=== PATIENT | female | born 1990 | race African-American/Black ===

== ENCOUNTER 2018-02-20 15:59 | Emergency (ER) | payer BC ==
[~2018-02-20] VITALS: Ht 177.8 cm; Wt 70.3 kg
[2018-02-20 16:00] VITALS: BP 111/78
[2018-02-20] MEDS ORDERED: PSEUDOEPHEDRINE HCL 30 MG TABLET ONE (16:58)
[2018-02-20] MEDS ORDERED: IBUPROFEN 600 MG TABLET PO ONE ×2 (16:58→17:00)
[2018-02-20] MEDS ORDERED: PSEUDOEPHEDRINE HCL 30 MG TABLET PO ONE (17:00)
== END 2018-02-20 17:14 | disposition home or self-care (01) ==
LOC: ER 16:00
DX: G44.89 Other headache syndrome (principal)
CPT/HCPCS: Z7610